=== PATIENT | female | born 1985 | race Caucasian/White ===

== ENCOUNTER 2018-06-30 16:39 | Observation (INO) | payer OTHER, SELFPAY ==
[2018-06-30] MEDS ORDERED: Lorazepam 2 MG/ML VIAL ONE (17:12)
[2018-06-30] MEDS ORDERED: Morphine 4 MG/ML VIAL ONE ×2 (17:12→19:46)
[2018-06-30] MEDS ORDERED: Ondansetron PF 4 MG/2 ML Vial ONE (17:26)
[2018-06-30 17:47] LABS: #Eosinphils 0.1 thou/uL (0.0-0.7); #Lymphocytes 1.6 thou/uL (1.20-3.40); #Monocytes 0.9 thou/uL (0.11-0.59); #Neutrophils 10.5 thou/uL (1.40-6.50); %Basophils 0.3 % (0.0-1.0); %Lymphocytes 12.3 % (21.0-51.0); %Monocytes 6.7 % (0.0-10.0); %Neutrophils 79.7 % (42.0-75.0); Hemoglobin 13.8 g/dL (12.0-16.0); Mean Corpuscular HGB CONC 34.1 g/dL (32.0-36.0); Mean Corpuscular Hemoglobin 31.3 pg (27.0-31.0); Mean Corpuscular Volume 91.7 fL (78.0-98.0); Platelet Count 390 thou/uL (130-400); RBC Distribution Width 11.6 % (11.5-14.5); Red Blood Cell (RBC) Count 4.42 mill/uL (4.20-5.40); White Blood Cell (WBC) Count 13.1 thou/uL (4.8-10.8)
[2018-06-30 18:16] LABS: ALT (SGPT) 17 U/L (8-55); AST (SGOT) 19 U/L (5-34); Albumin 3.8 g/dL (3.5-5.0); Alkaline Phosphatase 110 U/L (40-150); Anion Gap 15 mmol/L (10-20); BUN (Urea Nitrogen) 11 mg/dL (7.0-18.7); Bilirubin, Total 0.3 mg/dL (0.2-1.2); Calc. Creatinine Clearance 0 mL/min (70-130); Calcium 9.5 mg/dL (7.8-10.44); Carbon Dioxide 22 mmol/L (22-29); Chloride 99 mmol/L (98-107); Estimated GFR-MDRD 84; Globulin 4.2 g/dL (2.4-3.5); Glucose 88 mg/dL (70-105); Lipase 10 U/L (8-78); Potassium 3.6 mmol/L (3.5-5.1); Sodium 132 mmol/L (136-145)
--- NOTE | 2018-06-30 18:20 | CT ---
CT ABDOMEN AND PELVIS WITH IV CONTRAST: Technique: Multiple contiguous axial images were obtained through the abdomen and pelvis with IV enha ncement. Indications: Abdominal pain. Comparison: 11-29-14 FINDINGS: Lung bases clear. Liver, spleen, pancreas unremarkable. Stomach and duodenum are unremarkable. Adrenal glands normal. Kidneys unremarkable. No hydronephrosis or urinary tract calculus. The urinary bladder is unremarkable. Small bowel loops appear normal caliber. Appendix is not identified. There is a history of prior appe ndectomy and hysterectomy. There is an abnormal circumscribed fluid dense mass involving the anterior abdominal wall just inferi or to the umbilicus. This mass is in the midline and the superior portion of the mass projects slight ly to the right of midline. It has somewhat of a bilobed appearance in the axial plane with total camron surement recorded at approximately 5.5 cm AP dimension with width recorded at approximately 3.0 cm. T his appears to reside above the peritoneum but does involve the anterior abdominal wall. It appears t o involve the lumina alba in the midline and possibly the right rectus abdominus. There is separation of the rectus abdominus muscles. IMPRESSION: Circumscribed fluid dense mass involve the anterior abdominal wall in the midline and projecting just to the right of midline over the right rectus abdominus muscle as described above. Considerations in clude abscess, hematoma, seroma and other fluid dense collections. POS: BAILEE
[2018-06-30 18:41] LABS: Bilirubin Negative (Negative); Blood, Urine Negative (Negative); Clarity CLEAR (Clear); Glucose, Urine (Dipstick) Negative (Negative); Leukocyte Small (Negative); Nitrite Negative (Negative); Protein, Urine (Dipstick) Negative (Neg-Trace); Urobilinogen 0.2 mg/dL (0.2-1.0)
[2018-06-30 18:44] LABS: Bacteria/HPF None Seen HPF (None Seen); Hyaline Casts/LPF 0-3 HYALINE CAST LPF (0-3 Hyaline); Pathc Cast-AUWi Flag 0.29 (0-2.49)
[2018-06-30 18:47] LABS: Specific Gravity, Urine 1.057 (1.002-1.036)
[2018-06-30 18:54] LABS: RBC/HPF 0-3 HPF (0-3)
[2018-06-30] MEDS ORDERED: Piperacillin/Tazobactam 4.5 GM VIAL ONE (19:32)
[2018-06-30] MEDS ORDERED: Acetaminophen 325 MG TAB PO PRN (21:14)
[2018-06-30] MEDS ORDERED: HYDROcodone/Acetaminophen 5/325 mg Tablet PO PRN ×2 (21:14)
[2018-06-30] MEDS ORDERED: Ondansetron ODT 4 MG TAB SL PRN (21:14)
[2018-06-30] MEDS: Morphine 4 MG/ML VIAL SLOW IVP PRN (22:25)
[2018-06-30] MEDS: Dextrose 5 %-0.45 % NaCl 1,000 ML IV SCH (22:25)
[2018-06-30] MEDS: Ondansetron PF 4 MG/2 ML Vial IVP PRN (22:32)
[2018-06-30 22:54] VITALS: BMI 33.6
[2018-07-01] MEDS: Morphine 4 MG/ML VIAL SLOW IVP PRN ×2 (01:09→07:19)
[2018-07-01] MEDS: Ketorolac Tromethamine 30 MG/ML VIAL IVP PRN ×3 (02:07→20:31)
[2018-07-01] MEDS: Acetaminophen 1,000 MG in Premix Bag 1 BAG IVPB PRN ×3 (02:07→20:31)
[2018-07-01] MEDS ORDERED: Piperacillin/Tazobactam 4.5 GM in Sodium Chloride 0.9% 100 ML IVPB SCH (04:00)
[2018-07-01] MEDS: Ondansetron PF 4 MG/2 ML Vial IVP PRN (07:19)
[2018-07-01] MEDS: Dextrose 5 %-0.45 % NaCl 1,000 ML IV SCH (07:23)
[2018-07-01] MEDS: Sodium Chloride 0.9% 1,000 ML IV SCH ×2 (09:14→17:48)
--- NOTE | 2018-07-01 09:15 | HP ---
HISTORY OF PRESENT ILLNESS: Babs Bates is a 33-year-old female, who reports to the emergency room because a week of periumbilical pain, mass, and low-grade fevers. She resisted presenting to the hospital to a doctor because of overlapping insurance and better coverage the first year. She, however, could not stand anymore, presented and noted to have a white count of 13, hemoglobin of 13. Basic metabolic profile normal. She underwent a CAT scan of the abdomen and pelvis, noting a mass in the soft tissues to the right of midline, bilobed 5.5 cm, and appears to involve the abdominal wall. The patient denies any trauma. She denies any precipitating event. Tobacco, one-half pack a day or less. Alcohol is rarely. ALLERGIES: SULFA. MEDICATIONS: None routinely. PAST SURGICAL HISTORY: In 2013, in [place], she underwent a right appendectomy and oophorectomy for right ovary and appendicitis. She has had a prior hysterectomy. The patient left the hospital on 10/2013, felt a pop during coughing episodes, saw her surgeon in [place], who sent her home. She presented back to [facility] with that office visit from that surgeon and was admitted and underwent exploration of wound, takedown of adhesions, closure of a wound dehiscence, abdominal washout, and cultures reveal MRSA. PICC line was established. Dr. Strange was involved. She received intravenous antibiotics and wound care and wound healed secondarily. The patient had nonhealing wound, presented back to the operating room on 07/13/2014, explored the wound, revealed as if any permanent sutures. Laparoscopy performed, some omental adhesions taken down. The open portion of the wound externally was probed and there was no penetration of the abdominal cavity. The wound was opened slightly, healed secondarily as an outpatient, and she has done well up to this point. 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 She lives in [place]. She works in [place]. PHYSICAL EXAMINATION: VITAL SIGNS: A 5 feet 7 inches, 215 pounds, and 33 BMI. HEAD, EARS, EYES, NOSE, AND THROAT: Unremarkable. LUNGS: Clear to auscultation. CARDIAC: Regular rate and rhythm. No murmur or gallop. ABDOMEN: Soft. Tenderness in her right abdomen with a mass effect to the right of midline infraumbilical. No skin changes. Well-healed infraumbilical wound. EXTREMITIES: Unremarkable. No ankle edema. LABORATORY DATA: Basic metabolic profile is normal. White count 13 and hemoglobin 13 yesterday. ASSESSMENT AND PLAN: Abdominal wall inflammatory process, possible abscess. We will plan incision and drainage in the operating room today. She understands risks and benefits, and consents. Procedures performed as indicated. I expect this to be extra-abdominal. Job ID: [id number]
[2018-07-01] MEDS: Morphine 4 MG/ML VIAL IV PRN ×3 (10:58→21:47)
[2018-07-01] MEDS ORDERED: Morphine 2 MG/ML SYRINGE ONE (13:23)
[2018-07-01] MEDS ORDERED: Morphine 4 MG/ML VIAL ONE (13:23)
[2018-07-01] MEDS ORDERED: CEFAZOLIN 2 GM/50 ML BAG ONE (13:28)
[2018-07-01] MEDS ORDERED: Fentanyl 100 MCG/2 ML VIAL ONE ×2 (13:46→14:52)
[2018-07-01] MEDS ORDERED: Midazolam HCl 2 mg/2 ml Vial ONE (13:46)
[2018-07-01] MEDS ORDERED: Bupivacaine HCl 0.5%/Epinephrine 1:200,000/PF 30 ml Vial ONE (14:14)
[2018-07-01] MEDS ORDERED: Acetaminophen 500 MG TAB PO PRN (14:35)
[2018-07-01] MEDS ORDERED: traMADol HCl 50 MG TAB PO PRN (14:35)
[2018-07-01] MEDS ORDERED: Ibuprofen 600 MG TAB PO PRN (14:35)
[2018-07-01] MEDS ORDERED: Ondansetron HCl/PF 4 MG/2 ML Vial IVP PRN (14:51)
[2018-07-01] MEDS ORDERED: Promethazine HCl 25 MG/ML VIAL IM PRN (14:51)
[2018-07-01] MEDS ORDERED: Promethazine HCl 25 MG/ML VIAL SLOW IVP PRN (14:51)
--- NOTE | 2018-07-01 16:21 | OP ---
DATE OF PROCEDURE: 07/01/2018 PREOPERATIVE DIAGNOSIS: Abdominal wall abscess, probably exiting intraperitoneal. POSTOPERATIVE DIAGNOSIS: Abdominal wall abscess, probably exiting intraperitoneal. PROCEDURE PERFORMED: Incision and drainage of abdominal wall abscess. ANESTHESIA: General with local of 0.5% Marcaine with epinephrine, 30 mL. DESCRIPTION OF PROCEDURE: The patient was taken to the operating room under general anesthesia. Abdomen was prepared with ChloraPrep and draped in routine fashion. Incision was made through the old scar below the umbilicus, carried down through the skin and subcutaneous tissue, where I drained an abscess cavity full of purulent material. Culture and sensitivity were submitted. This may have extended intraperitoneal, it was difficult to tell. Wound was irrigated. Local anesthetic was infiltrated in the skin and subcutaneous tissue. Postoperative pain control. Wound Care Team called and wound VAC applied. The patient tolerated the procedure well. Job ID: [id number]
[2018-07-01] MEDS: traMADol HCl 50 MG TAB PO PRN ×2 (16:54→23:10)
[2018-07-01] MEDS ORDERED: Dexamethasone 20 MG/5 ML VIAL ONE (20:26)
[2018-07-01] MEDS ORDERED: PROPOFOL 200 MG/20 ML VIAL ONE (20:26)
[2018-07-01] MEDS ORDERED: Ondansetron PF 4 MG/2 ML Vial ONE (20:26)
[2018-07-01] MEDS ORDERED: Glycopyrrolate 0.2 MG/ML 5 ML SYRINGE ONE (20:26)
[2018-07-01] MEDS: Cefepime 2 GM in Sodium Chloride 0.9% 100 ML IVPB SCH (20:28)
[2018-07-01] MEDS: Enoxaparin Sodium 40 MG/0.4 ML SYRINGE SC SCH (20:29)
[2018-07-01] MEDS: Vancomycin HCl 1.5 GM in Sodium Chloride 0.9% 250 ML 300 ML IVPB SCH (21:20)
[2018-07-02] MEDS: Ketorolac Tromethamine 30 MG/ML VIAL IVP PRN ×2 (03:23→20:49)
[2018-07-02] MEDS: Sodium Chloride 0.9% 1,000 ML IV SCH ×2 (04:05→15:14)
[2018-07-02] MEDS: Morphine 4 MG/ML VIAL IV PRN ×4 (06:21→22:00)
[2018-07-02] MEDS: Polyethylene Glycol 3350 17 GM Packet PO SCH (09:26)
[2018-07-02] MEDS: Cefepime 2 GM in Sodium Chloride 0.9% 100 ML IVPB SCH ×2 (09:26→20:48)
[2018-07-02] MEDS: Vancomycin HCl 1.5 GM in Sodium Chloride 0.9% 250 ML 300 ML IVPB SCH ×2 (10:11→22:06)
[2018-07-02] MEDS: traMADol HCl 50 MG TAB PO PRN (10:11)
[2018-07-02] MEDS ORDERED: HYDROcodone/Acetaminophen 5/325 mg Tablet PO PRN ×2 (17:18)
[2018-07-02] MEDS: HYDROcodone/Acetaminophen 5/325 mg Tablet PO PRN (18:28)
--- NOTE | 2018-07-02 18:36 | PRG ---
DATE OF SERVICE: 07/02/2018 SUBJECTIVE: Babs Bates is doing well. Her wound is growing out Staph. She remains afebrile. She is tolerating her diet. She reports Ultram is inadequate and we will order [place] 5/325 for her pain. I would hope to arrange outpatient wound VAC care following Mondays and , perhaps we can hold off changing her wound VAC until . Send her home after 's change on oral antibiotics appropriate for sensitivities, currently pending from her cultures. She can then have outpatient wound care on Mondays and . Job ID: [id number]
[2018-07-02] MEDS: Enoxaparin Sodium 40 MG/0.4 ML SYRINGE SC SCH (20:49)
[2018-07-03] MEDS: HYDROcodone/Acetaminophen 5/325 mg Tablet PO PRN ×3 (00:39→20:51)
[2018-07-03 08:34] LABS: Vancomycin, Trough 17.7 ug/mL
[2018-07-03] MEDS: Cefepime 2 GM in Sodium Chloride 0.9% 100 ML IVPB SCH (08:54)
[2018-07-03] MEDS: Polyethylene Glycol 3350 17 GM Packet PO SCH (08:54)
[2018-07-03] MEDS: Vancomycin HCl 1.5 GM in Sodium Chloride 0.9% 250 ML 300 ML IVPB SCH ×2 (08:55→20:50)
[2018-07-03] MEDS: Ketorolac Tromethamine 30 MG/ML VIAL IVP PRN (09:01)
--- NOTE | 2018-07-03 12:03 | PRG ---
DATE OF SERVICE: 07/03/2018 A 33-year-old female progress note. Cultures have returned MRSA sensitive to doxycycline, rifampin, and vancomycin. Today, we discontinued her cefepime, continued her vancomycin hospital. I have written prescriptions for 2 weeks of doxycycline, rifampin, and [place] 5/325 #50. I have encouraged her to not take [place] unless actually necessary. [facility] has arranged, outpatient wound care at [facility], VAC change Mondays and . If her wound VAC is available today, she could be discharged home later today or tomorrow if it is not available until tomorrow. The patient's exam otherwise is unremarkable. She is afebrile, 97.8, 79, and 125/81. Job ID: [id number]
[2018-07-03] MEDS ORDERED: HYDROcodone/Acetaminophen 5/325 mg Tablet PO PRN (14:31)
[2018-07-03] MEDS ORDERED: Sodium Chloride 0.9% 1,000 ML IV SCH (19:45)
[2018-07-03] MEDS: Enoxaparin Sodium 40 MG/0.4 ML SYRINGE SC SCH (20:50)
[2018-07-03] MEDS: Morphine 4 MG/ML VIAL IV PRN (22:20)
[2018-07-04] MEDS: HYDROcodone/Acetaminophen 5/325 mg Tablet PO PRN ×2 (01:56→11:59)
[2018-07-04] MEDS: Vancomycin HCl 1.5 GM in Sodium Chloride 0.9% 250 ML 300 ML IVPB SCH (09:30)
--- NOTE | 2018-07-04 10:25 | PRG ---
DATE OF SERVICE: 07/04/2018 SUBJECTIVE: Babs aBtes is doing well today. Her pain is under better control. We are awaiting Dr. Strange' consultation. Her wound VAC approval is pending. From a surgical standpoint, the patient will be discharged home. She has an outpatient wound care [facility] arrangement change Sunday and next week. I will see her in Wound Care next . She is sent home with [place] 5/325 for pain. Instructions to take Tylenol, ibuprofen when able. We will await Dr. Strange' consultation and expect she will be discharged later today pending [facility] approval. Job ID: [id number]
[2018-07-04] MEDS: Morphine 4 MG/ML VIAL IV PRN (11:51)
[2018-07-04] MEDS ORDERED: HYDROcodone/Acetaminophen 7.5/325 mg Tablet PO PRN ×2 (16:20)
[2018-07-04] MEDS: traMADol HCl 50 MG TAB PO PRN (16:30)
[2018-07-04] MEDS: Polyethylene Glycol 3350 17 GM Packet PO SCH (16:38)
[2018-07-04 16:43] VITALS: BP 111/74; TEMP 97.7
--- NOTE | 2018-07-04 17:43 | PRG ---
DATE OF SERVICE: 07/04/2018 Babs Bates is doing well today. Dr. Strange had seen her and had given her rifampin and doxycycline for 2 weeks. Parks 5/325 was inadequate and I wrote a prescription for 7.5 Parks, #35. The patient has outpatient wound care arranged, VAC has been approved. She will be discharged home and I will see her wound in the next 10 days in outpatient wound care. Job ID: [id number]
--- NOTE | 2018-07-04 18:07 | CON ---
DATE OF CONSULTATION: 07/04/2018 REASON FOR CONSULTATION: Abdominal wall abscess, recurrent. HISTORY OF PRESENT ILLNESS: A 33-year-old, whom I had seen in 2013, at that time, she had a history of tubo-ovarian abscess with involvement of appendix and resection in [place]. On March 29, 2014, she had dehiscence of the wound and Dr. Israel did an exploration and I and D, and since then, the patient kept having recurrent episodes of panniculitis with small amount of fluid accumulation and drainage through an open wound in the midline below the umbilicus. MRSA was retrieved every single time that an organism was isolated. She had seven CT scans altogether, which showed evidence of panniculitis and had finished numerous courses of oral doxycycline with improvement, but then recrudescence. She was given then IV vancomycin for a period of time. I saw her a few months later in August 2014 and she had been doing well with complete healing of the incision without any induration or erythema. In May 2017, she contacted me and she was still doing well with no evidence of recurrence of the process. Unfortunately, now she has noticed a fairly sudden onset of inflammatory process with induration along the same area of the previous abscess in the infraumbilical region. She had a white cell count of 13,000, and Dr. Israel did a procedure on July 01. Procedure note was reviewed and the incision was opened through the old scar below the umbilicus, carried down to the skin and subcutaneous tissues and an abscess cavity was full of purulent material, which was washed out and culture submitted. Dr. Israel mentioned that there might have been intraperitoneal extension, but he was not sure about that. The wound was irrigated and negative pressure dressing was applied. Currently, she looks well. Denies headaches, visual symptoms, sore throat, odynophagia, or dysphagia. No dyspnea or chest pain. Mild abdominal pain at the wall area at the site of the surgery. No genitourinary symptoms. No joint symptoms. No neurological symptoms. PAST MEDICAL HISTORY: Tubo-ovarian abscess with involvement of the appendix with resection of both in 2013 in [place] and since then she has had recurrent episodes of abscess along the previous incision with one previous I and D procedure and then I have protracted IV vancomycin with then resolution and now delayed recrudescence , I believe the same organism as noted below was isolated. ALLERGIES: HER ALLERGY HISTORY; SULFA DRUGS WITH RASH. CURRENT MEDICATIONS: Include; 1. Vancomycin. 2. P.r.n. medications. The patient works with [employer]. [place]. She has a history of smoking, and . PHYSICAL EXAMINATION: VITAL SIGNS: Temperature max 97.8, BP 112/70, pulse 62, respirations 18, and O2 saturation 95%. SKIN: Shows the wound, which has an oval elliptical shape with quite fresh red tissue at the base. The skin surrounding the wound does not have erythema. The patient has a peripheral IV access. No Damon catheter. No lymphadenopathy. HEENT: Ocular movements are conjugate. Oral cavity normal. NECK: Supple. LUNGS: Clear to auscultation and percussion. HEART: Normal. ABDOMEN: Soft without tenderness except for the site of the surgical procedure. No ascites. No bladder distention. No joint inflammatory activity. Pulses 1+ in dorsalis pedis. Plantar responses are flexor. NEUROLOGIC: Nonfocal. LABORATORY DATA: White cell count 13.1, hemoglobin 13.8, platelets 390, with 79 % neutrophils and sodium 132, creatinine 0.78 with normal liver profile. Albumin 3.8. Urinalysis with 11 to 20 wbc's. Vanc trough 17. Microbiology with MRSA with the exact same susceptibility profile the one obtained in 2014. CT scan of the abdomen shows an abnormal circumscribed fluid dense mass in the anterior abdominal wall just inferior to the umbilicus which appears to reside above the peritoneum, it does involve the anterior abdominal wall including possibly the right rectus abdominis. ASSESSMENT: Tubo-ovarian abscess with involvement of the appendix operated in [place] in 2013 with recurrent abdominal wall abscesses secondary to methicillin-resistant Staph aureus since then. The patient has had three interventions, two in 2013 and 2014 with then protracted IV vancomycin and then a long period of quiescence of the process until now when she has noticed recrudescence at the exact same spot. Dr. Israel did not find any foreign body. Apparently, the patient did have a retained suture in the past, but this time no foreign body was found. DISCUSSION: The differential diagnosis includes a foreign body that was not identified, for example foreign body involving the rectus muscle layer versus an area of necrotic panniculus that had not been I and D'd in the past with colonization by the same organism. The recrudescence after such a long period of time, it is suspicious for a foreign body colonized by Staph aureus within a biofilm where it has remained resident in a dormant state for a long period of time. Those types of chronic colonization have been known to recur even many, many years after the original infection. At this point, we will switch her to oral rifampin/doxycycline for four weeks. Follow up in the clinic. Other radiological methods that may localize infection might include ultrasound, MRI or even a PET scan after resolution of the acute inflammatory process. There is no evidence of dissemination to distant sites at this point in time. Job ID: [id number] [facility]
--- NOTE | 2018-07-05 12:42 | DIS ---
DATE OF ADMISSION: 06/30/2018 DATE OF DISCHARGE: 07/04/2018 DISCHARGE DIAGNOSIS: Methicillin-resistant Staphylococcus aureus abscess, recurrent, midline, infraumbilical. PROCEDURE DURING THIS HOSPITALIZATION: CT scan of the abdomen and pelvis on 06/30/2018 and 07/01/2018, drainage of abscess under general anesthesia. CONSULTATION: Dr. Strange, MRSA abscess, recurrent. HISTORY: A 33-year-old morbidly obese, 5 feet and 7 inches, 215 pounds, BMI 33. The patient presented to this facility in 2013 after undergoing the procedure in [place] for appendectomy and right oophorectomy. She reported that she felt a pop in her abdomen, saw her surgeon who told her it was fine. She reported to this institution and required closure of wound dehiscence and abdominal washout. Culture revealed MRSA. PICC line was established. Dr. Strange involved. Intravenous antibiotics administered as outpatient. The patient did well. She presented back to the operating room on 07/13/2014 for reexploration of the wound, laparoscopy, and no foreign body was found, no nonabsorbable suture was found. The wound sinus was debrided and then this healed. She has not had any problems since that time until this presentation, where she had periumbilical pain, low-grade fevers, presented to the hospital. CAT scan revealed subcutaneous tissue mass extending near the rectus muscles. The patient underwent drainage procedure. Postoperatively, she did well. She had a wound VAC arranged. She is sent home with the above regimen. Follow up in outpatient wound care, at which point, I will see her. Job ID: [id number]
== END 2018-07-04 18:00 | disposition home or self-care (01) ==
LOC: ERS 16:39 → SURG A 20:55
PROVIDERS: ADMIT Specialist; ATTEND Specialist
PROC: 0J980ZZ Drainage of Abdomen Subcutaneous Tissue and Fascia, Open Approach (ICD-10-PCS; principal; 2018-07-01)
DX: L02.211 Cutaneous abscess of abdominal wall (principal); B95.62 Methicillin resistant Staphylococcus aureus infection as the cause of diseases classified elsewhere; Z88.2 Allergy status to sulfonamides; Z98.890 Other specified postprocedural states
CPT/HCPCS: 36415; 74177; 80053; 80202; 81003; 81015; 83690; 85025; 87040; 87070; 87077; 87086; 87186; 87205; 96361; 96365; 96366; 96367; 96372; 96375; 96376; G0378; J0131; J0670; J0692; J1100; J1650; J1885; J2060; J2250; J2270; J2405; J2543; J2704; J3010; J3370; J7050

== ENCOUNTER 2018-07-08 11:41 | Outpatient (CLI) | payer SELFPAY ==
[2018-07-08] MEDS ORDERED: Sodium Chloride 0.9% 15 ML NEB ONE (14:10)
[2018-07-08] MEDS ORDERED: Lidocaine 4% Topical Sol 50 ML BOT ONE (14:10)
== END 2018-07-08 11:42 | disposition home or self-care (01) ==
LOC: WCC 11:41
PROVIDERS: ATTEND Family Medicine
DX: T81.89XD Other complications of procedures, not elsewhere classified, subsequent encounter (principal)
CPT/HCPCS: 97605; A4218; J2001

== ENCOUNTER 2018-07-12 13:25 | Outpatient (CLI) | payer SELFPAY ==
[~2018-07-12 13:25] MED LIST: Lidocaine 4% Topical Sol 50 ML BOT ONE; Sodium Chloride 0.9% 15 ML NEB ONE
== END 2018-07-12 13:26 | disposition home or self-care (01) ==
LOC: WCC 13:25
PROVIDERS: ATTEND Family Medicine
DX: T81.89XD Other complications of procedures, not elsewhere classified, subsequent encounter (principal)
CPT/HCPCS: 97605; A4218; J2001

== ENCOUNTER 2018-07-15 10:09 | Outpatient (CLI) | payer SELFPAY ==
[2018-07-15] MEDS ORDERED: Lidocaine 4% Topical Sol 50 ML BOT ONE (15:00)
[2018-07-15] MEDS ORDERED: Sodium Chloride 0.9% 15 ML NEB ONE (15:00)
== END 2018-07-15 10:10 | disposition home or self-care (01) ==
LOC: WCC 10:09
PROVIDERS: ATTEND Family Medicine
DX: T81.89XD Other complications of procedures, not elsewhere classified, subsequent encounter (principal)
CPT/HCPCS: 97605; A4218; J2001

== ENCOUNTER 2018-07-18 10:14 | Outpatient (CLI) | payer BC, SELFPAY ==
[2018-07-18] MEDS ORDERED: Lidocaine 2% PF 100 mg/5 ml Syringe ONE (15:00)
== END 2018-07-18 10:15 | disposition home or self-care (01) ==
LOC: WCC 10:14
PROVIDERS: ATTEND Family Medicine
DX: T81.89XD Other complications of procedures, not elsewhere classified, subsequent encounter (principal)
CPT/HCPCS: 97605; J2001

== ENCOUNTER 2018-07-22 11:09 | Outpatient (CLI) | payer BC ==
[2018-07-22] MEDS ORDERED: Lidocaine 4% Topical Sol 50 ML BOT ONE (11:11)
[2018-07-22] MEDS ORDERED: Sodium Chloride 0.9% 15 ML NEB ONE (11:11)
== END 2018-07-22 11:10 | disposition home or self-care (01) ==
LOC: WCC 11:09
PROVIDERS: ATTEND Family Medicine
DX: T81.89XD Other complications of procedures, not elsewhere classified, subsequent encounter (principal)
CPT/HCPCS: 97605; A4218; J2001

== ENCOUNTER 2018-07-25 10:34 | Outpatient (CLI) | payer BC ==
--- NOTE | 2018-07-25 15:36 | HP ---
HISTORY OF PRESENT ILLNESS: Ms. Babs Bates is a very pleasant 33-year-old, who presents to the Wound Center for evaluation of a wound of the anterior abdominal wall subsequent to incision and drainage of an abdominal wall abscess on 07/01/[address] Bakari Israel. Negative pressure therapy was initiated intraoperatively. Upon discharge from [facility], the patient was referred to the Wound Center for assistance with dressing changes of the wound VAC. The patient's medical history significant for surgery for wound dehiscence on 03/28/2014 after open infraumbilical appendectomy with right oophorectomy due to a gangrenous ovary. The patient states that in June of 2014, she underwent a second surgical procedure by Dr. Israel for a nonhealing infraumbilical midline wound. She states that at this time, she also received negative pressure therapy with rapid healing of the wound. PAST MEDICAL HISTORY: 1. History of MRSA. 2. Asthma. PAST SURGICAL HISTORY: 1. Hysterectomy. 2. Surgery for wound dehiscence on 03/28/2014 after open infraumbilical appendectomy with right oophorectomy due to gangrenous ovary. 3. Surgery for nonhealing infraumbilical midline wound in June of 2014. 4. Incision and drainage of abdominal wall abscess/wound VAC application, on 07/01/2018. 5. . 6. Left ankle surgery. 7. Surgery for sebaceous cyst. MEDICATIONS: 1. Rifampin. 2. Doxycycline. 3. [place]. ALLERGIES: SULFA. SOCIAL HISTORY: Social history is significant for tobacco use of 1/2 of a pack of cigarettes per day for 20 years. The patient admits to the consumption of two drinks per year for the past 18 years. FAMILY HISTORY: Family history is significant for coronary artery disease. The patient states that her father was diagnosed with coronary artery disease. Family history is negative for diabetes mellitus. PHYSICAL EXAMINATION: VITAL SIGNS: Temperature 97.5, pulse 76, respirations 18, and blood pressure 129/69. GENERAL: A 33-year-old female, sitting on chair in examination room, in no acute distress. HEENT: Normocephalic and atraumatic. NECK: No nuchal rigidity. CHEST: Clear to auscultation. CV: Regular rate and rhythm. ABDOMEN: Soft. A wound of the abdomen in the midline is present, which measures approximately 2.0 x 1.1 cm. The depth of the wound is approximately 4.5 cm. Granulation tissue is present within the wound margins. No purulent drainage is associated with the wound. No erythema of the skin surrounding the wound is present. No maceration of the skin of the periwound is noted. EXTREMITIES: No clubbing or cyanosis. NEUROLOGIC: Grossly nonfocal. ASSESSMENT AND PLAN: 1. Wound of abdomen in the midline subsequent to incision and drainage of an abdominal wall abscess. Negative pressure therapy was initiated intraoperatively and will be continued with dressing changes of the wound VAC 2 times per week here in the Wound Center. Arrangements will also be made for wound VAC dressing changes with the assistance of home health if possible. The patient is to continue by rifampin and doxycycline as previously prescribed. I will see Ms. Bates again in 2 weeks. 2. History of Methicillin-resistant Staphylococcus aureus. 3. Asthma. Job ID: [id number]
[2018-07-25] MEDS ORDERED: Sodium Chloride 0.9% 15 ML NEB ONE (19:44)
[2018-07-25] MEDS ORDERED: Lidocaine 4% Topical Sol 50 ML BOT ONE (19:44)
== END 2018-07-25 10:35 | disposition home or self-care (01) ==
LOC: WCC 10:34
PROVIDERS: ATTEND Family Medicine
DX: S31.109D Unspecified open wound of abdominal wall, unspecified quadrant without penetration into peritoneal cavity, subsequent encounter (principal); J45.909 Unspecified asthma, uncomplicated; Z86.14 Personal history of Methicillin resistant Staphylococcus aureus infection
CPT/HCPCS: A4218; J2001

== ENCOUNTER 2018-07-29 10:33 | Outpatient (CLI) | payer BC ==
[2018-07-29] MEDS ORDERED: Lidocaine 4% Topical Sol 50 ML BOT ONE (13:58)
[2018-07-29] MEDS ORDERED: Sodium Chloride 0.9% 15 ML NEB ONE (13:58)
--- NOTE | 2018-07-29 18:01 | PRG ---
DATE OF SERVICE: 07/29/2018 Babs Bates is seen in Wound Care today. She has wound VAC to her wound. She is doing well. Dr. Abrams suggests she may need this for about 2 more weeks. The patient is status post 03/28/2014 closure of wound, dehiscence in 07/13/2014. Diagnostic laparoscopy, noting some adhesions of omentum to the anterior abdominal wall. No viscera. No evidence of Prolene sutures. Exploration of abdominal wound with two Prolene sutures removed, although there is no purulent material. No evidence of a suture granuloma. No evidence of infection. The wound healed after that. The patient had a prior appendectomy at another facility and had some postoperative problems leading to the closure of the wound dehiscence I described. She on this occasion presented with inflamed omentum and a small dehiscence. She underwent exploration and on 07/01/2018, a small abscess was drained. Culture and sensitivity submitted. Wound closed with PDS sutures and wound VAC applied. By this time, the wound is granulating and has about 2.5 cm diameter wound, it is superficial. She has also completed the antibiotics prescribed by Dr. Strange, taking them orally. She will continue the wound VAC for another week or two, and we will change it to non VAC care after that. Job ID: [id number]
== END 2018-07-29 10:34 | disposition home or self-care (01) ==
LOC: WCC 10:33
PROVIDERS: ATTEND Family Medicine
DX: T81.89XD Other complications of procedures, not elsewhere classified, subsequent encounter (principal)
CPT/HCPCS: 97605; A4218; J2001

== ENCOUNTER 2018-08-01 11:40 | Outpatient (CLI) | payer BC ==
[2018-08-01] MEDS ORDERED: Lidocaine 4% Topical Sol 50 ML BOT ONE (15:30)
[2018-08-01] MEDS ORDERED: Sodium Chloride 0.9% 15 ML NEB ONE (15:30)
== END 2018-08-01 11:41 | disposition home or self-care (01) ==
LOC: WCC 11:40
PROVIDERS: ATTEND Family Medicine
DX: T81.89XD Other complications of procedures, not elsewhere classified, subsequent encounter (principal)
CPT/HCPCS: 97605; A4218

== ENCOUNTER 2018-08-06 11:12 | Outpatient (CLI) | payer BC | END 2018-08-06 11:13 | disposition home or self-care (01) | LOC: WCC 11:12 | PROVIDERS: ATTEND Family Medicine | DX: T81.89XD Other complications of procedures, not elsewhere classified, subsequent encounter (principal) | CPT/HCPCS: 97602; A4218 ==

== ENCOUNTER 2018-08-12 10:29 | Outpatient (CLI) | payer BC ==
--- NOTE | 2018-08-12 11:53 | PRG ---
DATE OF SERVICE: 08/12/2018 HISTORY: Ms. Babs Bates is a very pleasant 33-year-old, who presents to the Wound Center for evaluation of a wound of the anterior abdominal wall subsequent to incision and drainage of an abdominal wall abscess on 07/01/[address] Bakari Israel. Negative pressure therapy was initiated intraoperatively. Upon discharge from [facility], the patient was referred to the Wound Center for assistance with dressing changes of the wound VAC. The patient's medical history is significant for surgery for wound dehiscence on 03/28/2014 after open infraumbilical appendectomy with right oophorectomy due to a gangrenous ovary. The patient stated that in June of 2014, she underwent a second surgical procedure by Dr. Israel for a nonhealing infraumbilical midline wound. The patient stated that at this time, she also received negative pressure therapy with rapid healing of the wound. PHYSICAL EXAMINATION: VITAL SIGNS: Temperature 97.8, pulse 68, respirations 19, blood pressure 132/70. ABDOMEN: Soft. A wound of the abdomen in the midline is present, which measures approximately 1.7 x 0.9 cm. The depth of the wound is approximately 1.6 cm. The dimensions of the wound at the time of the patient's visit on 07/25/2018 were approximately 2.0 x 1.1 cm, the depth of the wound at this time was approximately 4.5 cm. Granulation tissue is present within the wound margins. No purulent drainage is associated with the wound. No erythema of the skin surrounding the wound is present. No maceration of the skin of the periwound is noted. ASSESSMENT AND PLAN: 1. Wound of abdomen in the midline subsequent to incision and drainage of an abdominal wall abscess. Negative pressure therapy was recently discontinued by Dr. Israel. Dressing changes of iodoform packing will be initiated today. These dressing changes are to be performed on a daily basis after cleansing and irrigation. I will see Ms. Bates again in 2 weeks. 2. History of methicillin-resistant Staphylococcus aureus. 3. Asthma. Job ID: [id number]
[2018-08-12] MEDS ORDERED: Sodium Chloride 0.9% 15 ML NEB ONE (15:00)
== END 2018-08-12 10:30 | disposition home or self-care (01) ==
LOC: WCC 10:29
PROVIDERS: ATTEND Family Medicine
DX: T81.89XD Other complications of procedures, not elsewhere classified, subsequent encounter (principal); J45.909 Unspecified asthma, uncomplicated
CPT/HCPCS: 97602; A4218

== ENCOUNTER 2018-08-28 10:20 | Outpatient (CLI) | payer BC ==
--- NOTE | 2018-08-28 10:59 | PRG ---
DATE OF SERVICE: 08/28/2018 HISTORY: Babs Bates is a very pleasant 33-year-old, who presents to the Wound Center for evaluation of a wound of the anterior abdominal wall subsequent to incision and drainage of an abdominal wall abscess on 07/01/[address] Bakari Israel. Negative pressure therapy was initiated intraoperatively. Upon discharge from [facility], the patient was referred to the Wound Center for assistance with dressing changes of the wound VAC. The patient's medical history is significant for surgery for wound dehiscence on 03/28/2014 after open infraumbilical appendectomy with right oophorectomy due to a gangrenous ovary. The patient stated that in June of 2014, she underwent a second surgical procedure by Dr. Israel for a nonhealing infraumbilical midline wound. The patient stated that at this time, she also received negative pressure therapy with rapid healing of the wound. PHYSICAL EXAMINATION: VITAL SIGNS: Temperature 98.0, pulse 80, respirations 16, blood pressure 126/96. ABDOMEN: Soft. A wound of the abdomen in the midline is present, which measures approximately 0.8 x 0.4 cm. The depth of the wound is approximately 0.6 cm. The dimensions of the wound at the time of the patient's visit on 08/12/2018 were approximately 1.7 x 0.9 cm. The depth of the wound at this time was approximately 1.6 cm. Granulation tissue is present within the wound margins. No purulent drainage is associated with the wound. No erythema of the skin surrounding the wound is present. No maceration of the skin of the periwound is noted. ASSESSMENT AND PLAN: 1. Wound of abdomen in the midline subsequent to incision and drainage of an abdominal wall abscess. After negative pressure therapy was discontinued by Dr. Israel, dressing changes of iodoform packing were initiated. These dressing changes will be continued on a daily basis after cleansing and irrigation. I will see Ms. Bates again in 2 weeks if her wound is still present at this time. 2. History of methicillin-resistant Staphylococcus aureus. 3. Asthma. Job ID: [id number]
== END 2018-08-28 10:21 | disposition home or self-care (01) ==
LOC: WCC 10:20
PROVIDERS: ATTEND Family Medicine
DX: S31.109D Unspecified open wound of abdominal wall, unspecified quadrant without penetration into peritoneal cavity, subsequent encounter (principal); J45.909 Unspecified asthma, uncomplicated; Z86.14 Personal history of Methicillin resistant Staphylococcus aureus infection

== ENCOUNTER 2020-09-07 10:42 | Outpatient (CLI) | payer BC ==
[~2020-09-07 10:42] MED LIST changes: +Iopamidol-370 76% 500 ML 1 ML ONE; -Lidocaine 4% Topical Sol 50 ML BOT ONE; -Sodium Chloride 0.9% 15 ML NEB ONE
--- NOTE | 2020-09-07 11:40 | CT ---
CT Abdomen W Con: 09/07/2020 11:10 AM CLINICAL INFORMATION: Right abdominal pain with history of sepsis COMPARISON: 04/30/2018 TECHNIQUE: Multiple contiguous axial images were obtained and a CT of the abdomen with IV contrast. Coronal and sagittal reformats were performed. FINDINGS: Please note the pelvis was not included on this exam. Lower Chest: within normal limits. Abdomen: Liver: within normal limits. Bile Ducts: Normal caliber. Gallbladder: No calcified gallstones. Normal caliber wall. Pancreas: within normal limits. Spleen: within normal limits. Adrenals: within normal limits. Kidneys: within normal limits. Peritoneum: No ascites or free air, no fluid collection. Bowel: The visualized large and small bowel are unremarkable. Mesentery and Retroperitoneum: No enlarged mesenteric or retroperitoneal lymph nodes. Vessels: Normal. Abdominal Wall: Postsurgical changes are seen in the abdominal wall. The previously seen fluid collec tion in the periumbilical region has resolved. Bones: Within normal limits IMPRESSION: No evidence of acute intraabdominal or pelvic abnormality.
== END 2020-09-07 10:43 | disposition home or self-care (01) ==
LOC: BICCT 10:42
PROVIDERS: ATTEND Internal Medicine Infectious Disease
DX: L02.211 Cutaneous abscess of abdominal wall (principal)
CPT/HCPCS: 74160; Q9967